=== PATIENT | male | born 1975 | race Caucasian/White ===

== ENCOUNTER 2022-05-04 10:45 | Inpatient (IN) ==
--- NOTE | 2022-04-10 09:22 | PAT Medication Instructions ---
Medication Instructions Date of Service April 10, 2022 Home Medications Medication Instructions Recorded oxycodone 5 mg tablet 5 mg PO Q4H PRN pain #15 tabs 01/27/22 allopurinol 100 mg tablet 100 mg PO QAM methocarbamol 750 mg tablet 1,500 mg PO TID PRN Pain omeprazole 40 mg capsule,delayed release 40 mg PO QAM sertraline 50 mg tablet (Zoloft) 50 mg PO QAM gabapentin 800 mg tablet 800 mg PO TID naproxen sodium 220 mg tablet (Aleve) 440 mg PO TID PRN Pain oxycodone 5 mg tablet 5 mg PO Q4H PRN pain metaxalone 800 mg tablet 800 mg PO TID PRN Muscle Spasm ASK your surgeon for instructions naproxen sodium 220 mg tablet (Aleve) 440 mg PO TID PRN Pain DO NOT take the morning of surgery methocarbamol 750 mg tablet 1,500 mg PO TID PRN Pain metaxalone 800 mg tablet 800 mg PO TID PRN Muscle Spasm Take morning of surgery With a small sip of water, OTHERWISE NOTHING TO EAT OR DRINK AFTER MIDNIGHT: allopurinol 100 mg tablet 100 mg PO QAM omeprazole 40 mg capsule,delayed release 40 mg PO QAM sertraline 50 mg tablet (Zoloft) 50 mg PO QAM gabapentin 800 mg tablet 800 mg PO TID oxycodone 5 mg tablet 5 mg PO Q4H PRN pain (if needed) Take evening before surgery methocarbamol 750 mg tablet 1,500 mg PO TID PRN Pain (if needed) gabapentin 800 mg tablet 800 mg PO TID oxycodone 5 mg tablet 5 mg PO Q4H PRN pain (if needed) metaxalone 800 mg tablet 800 mg PO TID PRN Muscle Spasm (if needed) Other Notes If you have any questions please call us at [phone] or [phone] or [phone] or [phone]
--- NOTE | 2022-04-12 12:13 | Anesthesiology Consultation ---
Date of Service April 12, 2022 Assessment & Plan (1) Encounter for pre-operative examination: - COVID screening: Per assessment on 04/12: No known COVID-19 positive contacts or current COVID-19 related symptoms. Travel screen negative. At surgeon discretion if preop Covid testing being done. - Hx glidescope intubation/cervical fusion: C6-7 ACDF, C4-C7 Plate, C4-C6 Removal Plate (02/16/19): Grade view 1, Glidescope #3, ETT 7.5 at [facility]. Chart Review Chart Review: Acceptable Risk for Surgery and Patient seen in Pre Admission Testing Teaching & Discussion Pre-Anesthesia Teaching/Discussion Notes: Instructed NPO after midnight before surgery,except medications with 15 cc of water. Medication instructions provided according to the PAT guidelines. History Surgery Operation Date: 05/04/22 10:05 Proposed Procedures p L4-S1 Decompression and Fusion, Spinal Cord Monitoring - Star Calix, Height/Weight Height: 5 ft 11.5 in Weight: 85.9 kg Allergies Allergy/AdvReac Type Severity Reaction Status Date / Time No Known Allergies Allergy Unknown Verified 04/09/22 12:19 Medications Home Medications Medication Instructions Recorded Confirmed Last Taken allopurinol 100 mg tablet 100 mg PO QAM 02/10/19 04/09/22 02/16/19 04:45 methocarbamol 750 mg tablet 1,500 mg PO TID PRN Pain 02/10/19 04/09/22 02/11/19 omeprazole 40 mg capsule,delayed 40 mg PO QAM 02/10/19 04/09/22 02/16/19 04:45 release sertraline 50 mg tablet (Zoloft) 50 mg PO QAM 02/10/19 04/09/22 02/16/19 04:45 gabapentin 800 mg tablet 800 mg PO TID 08/10/21 04/09/22 Unknown naproxen sodium 220 mg tablet 440 mg PO TID PRN Pain 08/10/21 04/09/22 Unknown (Aleve) oxycodone 5 mg tablet 5 mg PO Q4H PRN pain #15 tabs 01/27/22 04/09/22 Unknown metaxalone 800 mg tablet 800 mg PO TID PRN Muscle Spasm 04/09/22 04/09/22 Unknown Past Medical History Medical History Chronic back pain Chronic neck pain Degenerative disc disease GERD (gastroesophageal reflux disease) Gout Kidney stones Migraine Osteoarthritis Persistent adjustment disorder with anxiety Exercise / Class Metabolic Activity II 4-5 Yardwork/Stairs/Walk up hill (one FS (no CP, no SOB)) Past Family History Family History Mother Family history of diabetes mellitus Sister Family history of diabetes mellitus Father Family history of diabetes mellitus Father No problems noted. Family/Other FHx: cancer Other No family history of adverse response to anesthesia Past Surgical History Surgical History History of cholecystectomy History of colonoscopy History of tooth extraction S/P cervical spinal fusion C4-6 Fusion, C5 discectomy (2009) C6-7 ACDF, C4-C7 Plate, C4-C6 Removal Plate (02/16/19): Grade view 1, Glidescope #3, ETT 7.5 at [facility]. Past Anesthesia History No Hx of Anesthesia Complications and No Family Hx of Anesthesia Complications History of PONV No Hx of PONV and No Hx of Motion Sickness Social History Smoking Status: Current every day smoker tobacco type: e-cigarettes Smoking cigarettes per day: Vapes daily (trying to quit) Do You Dip or Chew Tobacco: No Hx Alcohol Use: Yes (quit 1999) alcohol intake frequency: holidays/special occasions only Hx Substance Use: Yes substance use type: marijuana (Medical marijuana (for pain)- rare use) and crack/cocaine (Quit cocaine 1999 per records ) Review of Systems Patient denies chest pain, shortness of breath, dyspnea on exertion, fever, chills, cough, wheezing, palpitations. Physical Exam Vital Signs VITALS BP 110/70 P 76 TEMP 98.1 SP02 97%RA RESP 16 PHYSICAL Full cervical extension range of motion. Full TMJ range of motion. TMD 3 finger breaths Mallampati Score 2 Dentition: full dentures upper/lower Lungs: clear throughout to auscultation Cardiac: regular rate and rhythm, no murmurs noted Spine: normal Carotid arteries: negative bruit Extremities: no edema Lab Results Anesthesia Preop Results Results Anesthesia Widget: WBC 10.05 K/ul (4.8-10.8) 04/12/22 Hgb 14.8 g/dl (14.0-18.0) 04/12/22 Hct 43.0 % (40.1-51.0) 04/12/22 Plt 293 K/uL (130-400) 04/12/22 Na 135 mmol/L (136-145) L 04/12/22 K 4.6 mmol/L (3.5-5.1) 04/12/22 Cl 102 mmol/L (98-107) 04/12/22 CO2 25 mmol/L (21-32) 04/12/22 BUN 18 mg/dl (6-23) 04/12/22 Creat 1.00 mg/dl (0.6-1.4) 04/12/22 Glucose Level 191 mg/dl (70-99(Fasting)) H 04/12/22 PT 10.2 Seconds (9.0-12.0) 04/12/22 PTT 27.1 Seconds (21.0-31.0) 04/12/22 INR 1.0 (0.9-1.1) 04/12/22 Urine Color Dark Yellow 04/12/22 Urine Appearance Clear (Clear) 04/12/22 Urine pH 5.5 (4.5-7.5) 04/12/22 Urine Specific Peck 1.033 (1.000-1.030) H 04/12/22 Urine Protein Negative (Negative) 04/12/22 Urine Glucose (UA) 1+ (Negative) H 04/12/22 Urine Ketones Trace (Negative) H 04/12/22 Urine Blood Negative (Negative) 04/12/22 Urine Nitrite Negative (Negative) 04/12/22 Urine Bilirubin Negative (Negative) 04/12/22 Urine Urobilinogen Negative (Negative) 04/12/22 Urine Leukocyte Esterase Negative (Negative) 04/12/22 Blood Type A Negative 04/12/22 Antibody Screen NEGATIVE 04/12/22 Testing Electrocardiogram Date: 04/12/22 NSR at 66bpm. Possible LAE. iRBBB. Chest X-Ray Date: 04/12/22 Findings: + NAD COVID-19 Risk Screen Screening Information COVID-19 Screen Date: 04/12/22 Exposure 21 Days Family/Household +COVID Last 21 Days: No Exposure 10 Days Any COVID Exposure Last 10 Days: No Symptoms Last 10 Days Experienced COVID Sx Last 10 Days: No + COVID 0-90 Days COVID + in Last 0-90 Days: No
[~2022-05-04 10:45] MED LIST: ACETAMINOPHEN 500 MG TAB PO SCH; CeleBREX 200 MG CAP PO SCH; GABAPENTIN 900 MG DOSE PO SCH; LR 15ML/HR IV SCH; SUGAMMADEX SODIUM 200 MG/2 ML VIAL IV ONE; ceFAZolin 2000MG 2,000 MG/15 ML SYR IV SCH
[2022-05-04] MEDS ORDERED: fentaNYL citrate 100 MCG/2 ML VIAL ONE ×2 (11:25→16:14)
[2022-05-04] MEDS ORDERED: GLYCOPYRROLATE 0.2 MG/ML VIAL ONE ×3 (11:25→15:39)
[2022-05-04] MEDS ORDERED: DEXAMETHASONE SOD INJ 4 MG/ML VIAL ONE (11:25)
[2022-05-04] MEDS ORDERED: PROPOFOL IV EMULSION 10 MG/ML 20 ML VIAL IV ONE (11:25)
[2022-05-04] MEDS ORDERED: ONDANSETRON INJ 2 MG/ML 2 ML VIAL ONE (11:25)
[2022-05-04] MEDS ORDERED: MIDAZOLAM HCL 1 MG/ML 2ML VIAL ONE (11:25)
--- NOTE | 2022-05-04 13:14 | History & Physical Bridge Note ---
Date of Service May 04, 2022 History & Physical Bridge Note I have examined the patient, reviewed the History & Physical and in the interval since the performance of the History & Physical I have noted the following changes of clinical significance: no changes noted
--- NOTE | 2022-05-04 13:15 | History & Physical Report ---
Date of Service May 04, 2022 Assessment & Plan (1) Neurogenic claudication due to lumbar spinal stenosis: Plan: L4-S1 decompression and fusion History of Present Illness Chief Complaint: Back and bilateral leg pain Primary Care Provider: Lamonte Garcia DO This is a 46-year-old male who presents with chronic persistent back and leg pain. Failed extensive course of nonoperative care is here for surgical invention. Allergies Allergy/AdvReac Type Severity Reaction Status Date / Time No Known Allergies Allergy Unknown Verified 05/04/22 11:08 Home Medications Medication Instructions Recorded Confirmed Type allopurinol 100 mg tablet 100 mg PO QAM 02/10/19 05/04/22 History methocarbamol 750 mg tablet 1,500 mg PO TID PRN Pain 02/10/19 05/04/22 History omeprazole 40 mg capsule,delayed 40 mg PO QAM 02/10/19 05/04/22 History release sertraline 50 mg tablet (Zoloft) 50 mg PO QAM 02/10/19 05/04/22 History gabapentin 800 mg tablet 800 mg PO TID 08/10/21 05/04/22 History naproxen sodium 220 mg tablet 440 mg PO TID PRN Pain 08/10/21 05/04/22 History (Aleve) oxycodone 5 mg tablet 5 mg PO Q4H PRN pain #15 tabs 01/27/22 05/04/22 Rx metaxalone 800 mg tablet 800 mg PO TID PRN Muscle Spasm 04/09/22 05/04/22 History Past Med/Surg History Medical History Chronic back pain Chronic neck pain Degenerative disc disease GERD (gastroesophageal reflux disease) Gout Kidney stones Migraine Osteoarthritis Persistent adjustment disorder with anxiety Surgical History History of cholecystectomy History of colonoscopy History of tooth extraction S/P cervical spinal fusion C4-6 Fusion, C5 discectomy (2009) C6-7 ACDF, C4-C7 Plate, C4-C6 Removal Plate (02/16/19): Grade view 1, Glidescope #3, ETT 7.5 at [facility]. Family History Mother Family history of diabetes mellitus Sister Family history of diabetes mellitus Father Family history of diabetes mellitus Father No problems noted. Family/Other FHx: cancer Other No family history of adverse response to anesthesia Social History Smoking Status: Never smoker Tobacco Type: E-cigarettes / Vaping Cigarettes Per Day: Vapes daily (trying to quit); Second Hand Exposure: No; Do You Dip or Chew Tobacco: No; Tobacco Cessation Education Requested by Patient: No Hx Alcohol Use: Yes (quit 1999) Hx Substance Use: Yes (quit cocaine 1999 -- has a medical marijuana card rarely uses now.) Preferred Language: Erit[place] Communication Ability: Effective Lamp Decorator Required: No Beliefs That Will Affect Care: None Current Living Situation: Significant Other Feels Safe at Home: Yes Safety Concerns: Feels Safe At This Time Assistive Devices: None Physical Exam Physical Exam: Patient is alert and oriented Heart regular rhythm Lungs clear Results & Data Results & Data ([facility]) Vital Signs (Past 12 Hours) Vital Signs Temp Pulse Resp BP Pulse Ox O2 Del Method 05/04/22 11:14 36.8 C 47 L 18 114/63 97 Room Air
[2022-05-04] MEDS ORDERED: BUPIVACAINE/EPINEPHRINE 0.25% 1:200,000 30 ML VIAL ONE (13:22)
[2022-05-04] MEDS ORDERED: ceFAZolin 330 MG/ML 1 GM VIAL ONE (13:22)
[2022-05-04] MEDS ORDERED: FLOSEAL HEMOSTATIC MATRIX 10ML TOP ONE (14:12)
[2022-05-04] MEDS ORDERED: ROCURONIUM BROMIDE 10 MG/ML 5 ML VIAL IV ONE (15:11)
[2022-05-04] MEDS ORDERED: HYDROmorphone INJ 2 MG/ML SYR/VIAL ONE (15:13)
[2022-05-04] MEDS ORDERED: NEOSTIGMINE METHYLSULFATE 1 MG/ML 10ML VIAL ONE (15:39)
--- NOTE | 2022-05-04 15:46 | Fluoroscopy Report ---
INTRAOPERATIVE RADIOGRAPHS CLINICAL HISTORY: Lumbar spinal fusion surgery. Fluoroscopy time: 31 seconds. FINDINGS: 2 spot fluoroscopic views of the lumbar spine are presented. There has been discectomy at L 4-L5 and L5-S1 with laminectomy and posterior fusion at L4-S1. Interpedicular screws are present at a ll levels. The orthopedic hardware appears intact. IMPRESSION: Intraoperative images from lumbar spinal fusion surgery as above. Electronically signed by: Zoltan Hernandez M.D. 05/04/2022 3:45 PM
--- NOTE | 2022-05-04 15:52 | Operative Report ---
Post Operative Report Pre & Post Diagnosis Operation Date: 05/04/22 12:15 Pre-Op Diagnosis: Spinal stenosis with neurogenic claudication Post-Op Diagnosis: Same I identified the patient and participated in the time-out.: Yes Procedure Operation Date: 05/04/22 12:15 Actual Procedures #1 lumbar decompression with bilateral medial facetectomies and foraminotomies L3-L4, L4-5 and L5-S1. #2 posterior spinal fusion L4-L5 L5-S1. #3 placement posterior instrumentation L4-S1. #4 interbody fusion L4-L5 L5-S1. #5 placement of Spira 14 x 26 mm cage at L3-4 L5 and 13 x 26 mm cage L5-S1. #6 placement locally harvested morselized autograft in the posterior gutters. #7 placement of I factor combined with V toss in the interbody space and posterior gutters. Surgeon Star Calix DO Plating Foreman None Estimated Blood Loss 100 Findings Consistent with Post-Op Diagnosis Specimens None Indications This is a 46-year-old male who presents above-mentioned diagnosis after failing course of nonoperative care is here for the above-mentioned procedure. Description of Procedure Patient is now identified informed consent obtained. Patient was then taken to the operative suite underwent a patient placed in a prone position the Serg table top of the Jose R frame. All bony prominences well-padded eyes inspected to ensure no external pressure placed upon the. This point lumbar spine was prepped and draped no sterile fashion. Sharp dissection with the assistance of Bovie Cardizem performed down to and exposing the lamina transverse processes of L4-5 and sacral ala bilaterally. From caudal to cephalad fashion complete laminectomy of L5 L4 partial laminectomy of L3 was performed including bilateral medial facetectomies and foraminotomies addressing severe spinal stenosis. Pedicle screws were then placed in L4-L5 and S1 levels bilaterally with assistance of fluoroscopy and the properly sized clyde placed. By way the transforaminal approach on the left complete discectomy was performed endplates curetted to subcortical bleeding bone and a 13 x 26 mm spiral cage with I factor tapped in position. Then proceeded to L4-L5 again by way of a transfemoral approach on the left complete discectomy performed endplates coated to subcortical bleeding bone and a 14 x 26 mm spiral cage with I factor tapped in position. The rods then compressed locked in final position bilaterally. The transverse processes of L4-L5 and sacral ala burred to subcortical bleeding bone. I factor model V toss and locally harvested morselized autograft was placed in the posterior gutters. 15 round TORY drain inserted. The incision was then closed with 1 Vicryl the fascia 2-0 Vicryl subcutaneously and 4 Monocryl for final skin closure. Steri-Strips dressings placed. Patient waken taken to PACU in stable condition. Please note spinal cord monitoring was utilized at the procedure no changes noted. I attest to the content of the Intraoperative Record and any orders documented therein. Any exceptions are noted below.
[2022-05-04] MEDS ORDERED: ONDANSETRON INJ 2 MG/ML 2 ML VIAL IV PRN ×2 (16:08→17:21)
[2022-05-04] MEDS ORDERED: HYDROmorphone INJ 2 MG/ML SYR/VIAL IV PRN (16:08)
[2022-05-04] MEDS ORDERED: ePHEDrine sulfate 50 MG/ML AMP IV PRN (16:08)
[2022-05-04] MEDS ORDERED: ATROPINE SULFATE 0.1 MG/ML 10ML SYR IV PRN (16:08)
[2022-05-04] MEDS: fentaNYL citrate 100 MCG/2 ML VIAL IV PRN ×2 (16:15→16:20)
--- NOTE | 2022-05-04 16:45 | Anesthesiology Progress Note ---
Date of Service May 04, 2022 Anesthesia Post Procedure Vital Signs Vital Signs: Temp Pulse Resp BP Pulse Ox O2 Del Method O2 Flow Rate 05/04/22 16:35 45 L 12 121/66 96 Nasal Cannula 2 05/04/22 16:25 44 L 12 111/69 99 Oxymask 6 05/04/22 16:15 50 L 15 109/77 100 Oxymask 6 05/04/22 16:05 36.0 C L 51 L 14 117/83 100 Oxymask 6 05/04/22 11:14 36.8 C 47 L 18 114/63 97 Room Air Pain Intensity Lower Back: Pain Intensity: 4 Transfer of Care Handoff Completed per policy Notes Mental Status: alert / awake / arousable and participated in evaluation Patient Amnestic to Procedure: Yes Nausea / Vomiting: adequately controlled Pain: adequately controlled Airway Patency, RR, SpO2: stable & adequate BP & HR: stable & adequate Hydration State: stable & adequate Anesthetic Complications: no major complications apparent and Pt Satisfied with anesthetic care
[2022-05-04] MEDS ORDERED: LORazepam 0.5 MG TAB PO PRN (17:21)
[2022-05-04] MEDS ORDERED: diphenhydrAMINE Capsule 25 MG CAP PO PRN (17:21)
[2022-05-04] MEDS ORDERED: NALOXONE HCL 0.4 MG/1 ML VIAL/CARP IV PRN (17:21)
[2022-05-04] MEDS ORDERED: PROMETHAZINE HCL 12.5 MG in SODIUM CHLORIDE 0.9% 50 ML IV PRN (17:21)
[2022-05-04] MEDS ORDERED: SOD PHOSPHATE/SOD BIPHOSPHATE ENEMA 132 ML BTL PR PRN (17:21)
[2022-05-04] MEDS ORDERED: METOCLOPRAMIDE HCL INJ 5 MG/ML 2 ML VIAL IV PRN (17:21)
[2022-05-04] MEDS ORDERED: ONDANSETRON 4 MG OD TAB PO PRN (17:21)
[2022-05-04] MEDS ORDERED: DO NOT ADMINISTER FLU VACCINE PRN (17:21)
[2022-05-04] MEDS ORDERED: ACETAMINOPHEN 1,000 MG/100 ML VIAL IV PRN (17:21)
[2022-05-04] MEDS ORDERED: hydrOXYzine HCl 25 MG TAB PO PRN (17:21)
[2022-05-04] MEDS ORDERED: HYDROmorphone INJ 1 MG/ML SYRINGE IV PRN (17:21)
[2022-05-04] MEDS ORDERED: ACETAMINOPHEN 500 MG TAB PO PRN (17:21)
[2022-05-04] MEDS ORDERED: traMADol HCL 50 MG TABLET PO PRN (17:21)
[2022-05-04] MEDS ORDERED: LORazepam 0.5 MG in SYRINGE 0 ML IV PRN (17:21)
[2022-05-04] MEDS ORDERED: FAMOTIDINE 20 MG TAB PO PRN (17:21)
[2022-05-04] MEDS ORDERED: bisacodyL 10 MG SUPP PR PRN (17:21)
[2022-05-04] MEDS ORDERED: DO NOT ADMINISTER PNEUMOCOCCAL VACCINE PRN (17:21)
[2022-05-04] MEDS ORDERED: ALUMINUM/MAGNESIUM SUSP 30 ML UDC PO PRN (17:21)
[2022-05-04] MEDS ORDERED: MAGNESIUM HYDROXIDE SUSP 30 ML UDC PO PRN (17:21)
[2022-05-04] MEDS: LACTATED RINGER'S 1,000 ML IV SCH ×2 (17:43→21:36)
[2022-05-04] MEDS: oxyCODONE HCL IR 5 MG TAB (IMMEDIATE RELEASE) PO PRN (20:20)
[2022-05-04] MEDS: DOCUSATE SODIUM/SENNA 50/8.6MG TAB PO SCH (20:47)
[2022-05-04] MEDS: GABAPENTIN 800 MG TAB PO SCH (20:47)
[2022-05-04] MEDS: ceFAZolin 2000MG 2,000 MG/15 ML SYR IV SCH (22:00)
[2022-05-05] MEDS: LACTATED RINGER'S 1,000 ML IV SCH ×2 (04:02→14:28)
[2022-05-05] MEDS: oxyCODONE HCL IR 5 MG TAB (IMMEDIATE RELEASE) PO PRN ×4 (05:36→21:16)
[2022-05-05] MEDS: POLYETHYLENE (MIRALAX) 17 GM PACK PO SCH ×4 (05:58→23:41)
[2022-05-05] MEDS: ceFAZolin 2000MG 2,000 MG/15 ML SYR IV SCH (06:01)
[2022-05-05 07:26] LABS: Basophils # (auto) 0.02 K/uL (0-0.2); Basophils % (auto) 0.2 %; Hematocrit (blood only) 37.2 % (40.1-51.0); Hemoglobin 13.1 g/dl (14.0-18.0); Immature Granulocytes # (auto) 0.07 K/uL (0.00-0.02); Immature Granulocytes % (auto) 0.6 %; Lymphocytes # (auto) 0.88 K/uL (1.2-3.4); Lymphocytes % (auto) 7.1 %; Mean Corpuscular Hemoglobin 31.6 pg (25.0-34.0); Mean Corpuscular Hgb Conc 35.2 g/dL (32.0-36.0); Mean Corpuscular Volume 89.6 fL (80.0-100.0); Mean Platelet Volume 9.7 fL (9.4-12.4); Monocytes # (auto) 0.51 K/uL (0.24-0.82); Monocytes % (auto) 4.1 %; Platelet Count 227 K/uL (130-400); RDW Coefficient of Variation 12.5 % (11.5-14.5); RDW Standard Deviation 40.8 fL (36.4-46.3); Red Blood Count 4.15 M/uL (4.63-6.08); White Blood Count 12.48 K/ul (4.8-10.8)
[2022-05-05 07:44] LABS: BUN Creatinine Ratio 13.6 (10-20); Calcium 8.3 mg/dl (8.5-10.1); Est GFR (African American) 117.7 ml/min; Est GFR (Non-African American) 101.6 ml/min; Potassium 3.8 mmol/L (3.5-5.1)
[2022-05-05] MEDS: GABAPENTIN 800 MG TAB PO SCH ×3 (09:33→21:14)
[2022-05-05] MEDS: SERTRALINE HCL 50 MG TABLET PO SCH (09:33)
[2022-05-05] MEDS: PANTOprazole 40 MG TAB PO SCH (09:33)
[2022-05-05] MEDS: allopurinoL 100 MG TAB PO SCH (09:33)
--- NOTE | 2022-05-05 10:05 | Orthopedic Progress Note ---
Date of Service May 05, 2022 Assessment & Plan (1) Neurogenic claudication due to lumbar spinal stenosis: Plan: This time initiate physical therapy monitor his TORY output anticipate discharge home in the next few days. Admission and Anticipated Discharge Date Admission Date: May 04, 2022 Subjective Back pain controlled leg pain improved Physical Exam Physical Exam: On exam is good strength testing appears comfortable. Results & Data ([facility]) Vital Signs (Past 12 Hours) Vital Signs Temp Pulse Resp BP Pulse Ox O2 Del Method 05/05/22 09:45 36.4 C L 51 L 16 117/71 98 Room Air 05/05/22 07:01 36.5 C 48 L 16 100/61 96 Room Air 05/05/22 02:13 36.4 C L 53 L 16 99/59 L 96 Room Air 05/04/22 22:34 36.4 C L 58 L 18 101/60 97 Room Air
[2022-05-05] MEDS ORDERED: Nursing to Pharmacy Communication SCH (14:15)
[2022-05-05] MEDS: DOCUSATE SODIUM/SENNA 50/8.6MG TAB PO SCH (21:13)
[2022-05-06] MEDS: oxyCODONE HCL IR 5 MG TAB (IMMEDIATE RELEASE) PO PRN ×4 (04:56→19:25)
[2022-05-06] MEDS: POLYETHYLENE (MIRALAX) 17 GM PACK PO SCH ×3 (05:02→17:20)
[2022-05-06] MEDS: HYDROmorphone INJ 0.5 MG/0.5 ML SYR IV PRN ×2 (08:37→20:31)
--- NOTE | 2022-05-06 08:38 | Orthopedic Progress Note ---
Date of Service May 06, 2022 Assessment & Plan (1) Neurogenic claudication due to lumbar spinal stenosis: Plan: Doc is postop day 2 status post lumbar decompression fusion L4-S1. We will continue with pain control today. DVT prophylaxis is in the form teds and SCDs. Maintain TORY drain. Continue with physical therapy and ambulation. Anticipate discharge home tomorrow Admission and Anticipated Discharge Date Admission Date: May 04, 2022 Subjective Doc is postop day 2 status post L4-S1 decompression and fusion. Now he is roger ving some increased back pain today. No radicular leg pain. He is passing flatus. No bowel movement. TORY drain output last shift was 30 cc. Yesterday physical therapy ambulating 15 feet. Review of Systems Review of Systems: All systems reviewed & are unremarkable except as noted in HPI & below Physical Exam Physical Exam: Alert and oriented x3 No acute distress Lumbar dressing is clean dry intact with functioning TORY drain Teds and SCDs intact bilaterally Calf soft nontender bilateral Strength intact bilateral lower extremities Results & Data ([facility]) Vital Signs (Past 12 Hours) Vital Signs Temp Pulse Resp BP Pulse Ox O2 Del Method 05/06/22 07:21 36.5 C 60 18 99/65 L 95 Room Air 05/05/22 21:48 36.4 C L 53 L 16 99/62 L 98 Room Air
[2022-05-06] MEDS: PANTOprazole 40 MG TAB PO SCH (08:40)
[2022-05-06] MEDS: GABAPENTIN 800 MG TAB PO SCH ×3 (08:40→20:31)
[2022-05-06] MEDS: SERTRALINE HCL 50 MG TABLET PO SCH (08:40)
[2022-05-06] MEDS: allopurinoL 100 MG TAB PO SCH (08:40)
[2022-05-06] MEDS: DOCUSATE SODIUM/SENNA 50/8.6MG TAB PO SCH (20:31)
[2022-05-07] MEDS: POLYETHYLENE (MIRALAX) 17 GM PACK PO SCH ×3 (00:30→12:27)
[2022-05-07] MEDS: oxyCODONE HCL IR 5 MG TAB (IMMEDIATE RELEASE) PO PRN ×3 (03:05→12:31)
[2022-05-07] MEDS: GABAPENTIN 800 MG TAB PO SCH (09:04)
[2022-05-07] MEDS: PANTOprazole 40 MG TAB PO SCH (09:04)
[2022-05-07] MEDS: allopurinoL 100 MG TAB PO SCH (09:04)
[2022-05-07] MEDS: SERTRALINE HCL 50 MG TABLET PO SCH (09:04)
--- NOTE | 2022-05-07 09:52 | Discharge Summary ---
Date of Service May 07, 2022 Admission HPI Per Admitting Provider This is a 46-year-old male who presents with chronic persistent back and leg pain. Failed extensive course of nonoperative care is here for surgical invention. Principal Diagnosis Lumbar spinal stenosis with neurogenic claudication Discharge Data Allergies Allergy/AdvReac Type Severity Reaction Status Date / Time No Known Allergies Allergy Unknown Verified 05/04/22 11:08 Procedures Performed Operation Date: 05/04/22 12:15 Actual Procedures p L4-S1 Decompression and Fusion, Spinal Cord Monitoring(Not Applicable) - Star Calix DO Ordered Studies 05/04/22 12:15 [place] lumbar spine 2-3V Routine Hospital Course (1) Neurogenic claudication due to lumbar spinal stenosis: Patient 1 lumbar depression fusion tolerated this well was taken to orthopedic for postoperative. Postop day 1 is up and ambulating progress postop day #2 and postoperative 3 pain was well controlled TORY drain decreased appropriately. Excellent strength testing. Subsequent discharge home. Discharge orders instructions from the chart for further review. Total Time Total Time Spent Total Time Spent (In Minutes): 20 minutes Discharge Plan Discharge Items Patient Disposition: Home - Self-Care Reason For Visit: Spinal Stenosis, Lumbar Region without Neurogenic Discharge Diagnosis: Lumbar spinal stenosis with neurogenic claudication Activity: As commented below Non-emergency contact: Primary Care Provider Call non-emergency contact if: you have any medication questions Follow-up/Referrals: Lamonte Garcia DO [Primary Care Provider] - Diet: Regular Addtl Attending Provider Instructions: ACTIVITY RECOMMENDATIONS: SELF CARE INSTRUCTIONS AFTER THORACIC/LUMBAR FUSIONS 1. You may walk to your tolerance. It is good exercise for your legs and back. Expect some back and intermittent leg aches and pains. 2. You may perform "counter-top" level activities (make a sandwich, oscar with a project, etc.). 3. No bending or lifting of more than 10 pounds or back twisting of any nature (roll like a log when turning in bed). 4. You may ride in a car for 20-30 minutes at a time. No driving until after your first visit with your doctor. 5. Frequent changes of position and restricting sitting to 30 minutes at a time will help limit the amount of back spasms and stiffness you may experience. 6. You may discontinue the use of ambulatory aids (cane, crutches, etc.) once your strength and confidence allow. 7. You may admitting officer the shower and let water strike your incision when you arrive home at least once daily. Do not take a tub bath, sit in a hot tub or go into a swimming pool until after your first recheck in the office. SPECIAL CARE INSTRUCTIONS: VERY IMPORTANT TO READ AND REVIEW A. Your surgical incision has been closed with a cosmetic suture under the skin that will dissolve in about 6 weeks. In 14 days, you can use a pair of clean scissors and cut the suture that is left outside of the skin at the ends of your incision. 1. The small skin tapes can be removed 7 days after surgery if they have not fallen off by that point. 2. You may keep the wound open to air as much as possible to promote healing after post-op day number 5 unless told otherwise by your doctor. 3. If you think the wound looks like it is becoming infected (redness or worsening drainage) and/or you are experiencing fever, chill or worsening back pain and muscle spasms, contact the office so that we may evaluate you as soon as possible. B. Complications are uncommon, but please contact us if you have any signs or symptoms of: 1. wound infection (fever higher than 102.5 degrees F, redness, separation of wound, drainage, or increasing pain from the incision) 2. blood clots in legs (pain, swelling, redness and warmth in legs) 3. urinary tract infection (fever higher than 102.5 degrees F, burning upon urination or increased frequency of urination) 4. nerve problems (inability to walk on your toes or heels, numbness, loss of bowel or bladder control) 5. any other symptoms that concern you C. Please call the office at if you have any concerns or questions about your operation or recovery. D. No smoking! Smoking drastically decreases the chance of a solid fusion. E. Do not take any anti-inflammatory medications (Indocin, Advil, Motrin, Aspirin, Naprosyn, etc.) as these may inhibit the chance of a solid fusion. Tylenol is okay to take for pain. MANAGING PAIN AFTER SPINAL SURGERY 1. Narcotic medication is intended for short-term use and will be provided for surgical pain. Surgical pain usually lasts for a period of 4-6 weeks. Narcotic medication includes Percocet, Vicodin, Darvocet, Tylenol #3 or Lortab. 2. Longer-term pain is more appropriately treated with non-narcotic medication such as Tylenol ES. 3. Muscle spasm is not appropriately treated with narcotics. Muscle relaxers such as Soma, Flexeril or Skelaxin can be used along with Tylenol ES. 4. Remember that we all live with some "aches and pains". This is not unusual or uncommon after an injury or as we get older. a. Back pain is expected and may include muscle spasms for 4 to 6 weeks after surgery. The pain should gradually improve. If the pain worsens for no apparent reason, please contact the office. b. Intermittent leg pain may also be experienced and should not be concerned about unless it worsens for no apparent reason. If so, please contact the office. 5. We will provide appropriate medication within the normal guidelines of their prescribed use. We will also be very cautious and aware of potential abuse and extended duration of patients' medication needs. a. Pain medications are for your comfort and to assist with sleep and rest so that the tissue can heal. They are not provided in order to return to normal activity and should not be used through the day. To do so or worsening pain at night can result from ongoing tissue damage and development of tolerance to the prescribed medicine. 6. Please allow 2-3 days to process refills. Prescriptions will not be mailed but must be picked up at the office. FOLLOW UP VISIT: Keep your scheduled follow-up appointment. Any questions, please call the office at . Pending Studies at Discharge: No Stand-Alone Forms: [facility], Smoking Cessation Medications and [place] Order Prescriptions: New tramadol 50 mg tablet 50 mg PO Q6H PRN (Reason: pain, moderate) Qty: 30 0RF oxycodone 5 mg tablet 5 mg PO Q6H PRN (Reason: pain, severe) Qty: 30 0RF Continued allopurinol 100 mg Tablet 100 mg PO QAM omeprazole 40 mg Capsule,Delayed Release(Dr/Ec) 40 mg PO QAM methocarbamol 750 mg Tablet 1,500 mg PO TID PRN (Reason: Pain) sertraline [Zoloft] 50 mg Tablet 50 mg PO QAM metaxalone 800 mg tablet 800 mg PO TID PRN (Reason: Muscle Spasm) naproxen sodium [Aleve] 220 mg Tablet 440 mg PO TID PRN (Reason: Pain) gabapentin 800 mg tablet 800 mg PO TID oxycodone 5 mg tablet 5 mg PO Q4H PRN (Reason: pain) Qty: 15 0RF Discharge Orders: Discharge Order (Routine); Ordered 05/07/22 Ordered By: Star Calix Admission Data Admit Date/Time: 05/04/22 15:55 Attending Provider: Star Calix Admit Provider: Star Calix Primary Care Provider: Lamonte Garcia
== END 2022-05-07 14:25 | disposition home or self-care (01) | DRG 455 ==
LOC: ASU 10:45 → 3E 15:55